=== PATIENT | male | born 1950 | race Caucasian/White ===

== ENCOUNTER → 2024-08-06 06:09 | Outpatient (REF) | payer MEDICARE, OTHER, SELFPAY ==
[2024-08-06 09:02] LABS: Hematocrit 39.9 % (39.0-52.0); Mean Corp Hgb Conc. 35.1 g/dL (33.0-37.0); Mean Corpuscular Hgb 31.3 pg (27.0-31.0); Mean Corpuscular Volume 89.1 fL (80.0-94.0); Mean Platelet Volume 10.4 fL (7.4-10.4); Platelet Count 225 10^3/uL (130-400); Red Blood Cell Count 4.48 10^6/uL (4.70-6.10); Red Cell Dist. Width 13.2 % (11.5-14.5); White Blood Cell Count 7.1 10^3/uL (4.8-10.8)
[2024-08-06 09:38] LABS: Blood Urea Nitrogen 25 mg/dl (9-20); Carbon Dioxide 27 mmol/L (22-30); Chloride 109 mmol/L (98-107); Glucose 94 mg/dl (70-99); Potassium 4.1 mmol/L (3.5-5.1); Sodium 141 mmol/L (135-145); eGFR > 60.00
== END ==
LOC: SDSPAT 06:09
PROVIDERS: ATTENDING PHYSICIAN Surgery; FAMILY PHYSICIAN Family Medicine
DX: Z01.818 Encounter for other preprocedural examination (principal)
CPT/HCPCS: 36415; 80048; 85027

== ENCOUNTER 2024-08-20 06:21 | Day surgery (SDC) | payer MEDICARE, OTHER, SELFPAY ==
[2024-08-06 06:56] VITALS: BMI 28.3
--- NOTE | 2024-08-13 09:48 | PTCARENOTE ---
PER DAUGHTER, LAP SX WAS STOPPED D/T PT HAVING VAGAL RESPONSE TO LAP SX AND TREN[place]LENBUR[place] POSITION, WITH SUBSEQUENT CARDIAC WORKUP, THAT WAS NEGATIVE. PRE-PROCEDURE CARDIAC CLEARANCE OF FILE. ENRIQUE ZENG/ ANESTHESIA COORDINATOR NOTIFIED. NO
FURTHER ORDERS AT THIS TIME.
[2024-08-20] VITALS (7 sets, daily range): BP systolic 118–154; BP diastolic 68–87; BMI 28.3
[2024-08-20] MEDS: NORMOSOL-R/PLASMALYTE-A 1000 IV (08:00)
[2024-08-20] MEDS: TYLENOL 1000 MG PO (08:00)
--- NOTE | 2024-08-20 08:47 | HP.FOC2 ---
Focused History & Physical
Chief Complaint
HPI:
Chief Complaint: Right inguinal hernia
HPI / Indication for Planned Procedure: Patient is a 74-year-old male recently seen in outpatient surgical evaluation secondary to right inguinal swelling and discomfort. Physical examination confirmed the presence of a readily apparent and
reducible right inguinal hernia. I reviewed with the patient and his treatment options. He wished to pursue operative correction and presents today for repair.
Relevant Past Medical History: Other (History of prostate cancer)
Relevant Social History: Negative
Relevant Family History: Negative
Relevant Past Surgical History: Positive for (Robotic prostatectomy, appendectomy)
Review of Systems
Review of Pertinent Systems: All Systems Negative
Medication
See Medication form for detailed medications: Yes
Medication List (including Herbals & OTC):
cholecalciferol (vitamin D3) 25 mcg (1,000 unit) tablet (Vitamin D3) 25 mcg PO DAILY 08/13/24
Medications Reviewed: Yes
Allergies and Reactions
Patient has Allergies: No
Noted Allergies and Reactions:
Allergy/AdvReac Type Severity Reaction Status Date / Time
No Known Allergies Allergy Verified 08/20/24 07:40
Pertinent Physical Exam
All Other Systems: Negative
Head/Neck: Normal
Lungs: Normal
Heart: Normal
Abdomen: Other (Robotic surgical scars, appendectomy surgical scar) and Other (Reducible right inguinal hernia)
Extremities: Normal
Neurological: Normal
Diagnosis / Assessment
74-year-old male presenting for scheduled operative correction symptomatic right inguinal hernia
Plan / Procedure
Robotic assisted laparoscopic repair right inguinal hernia with mesh; possible open
Anesthesia/Sedation to be done by Anesthesia Provider: Yes
--- NOTE | 2024-08-20 08:48 | W.SUR.PREOP ---
Pre-Operative Surgical Note
-
I have examined this patient prior to the performance of the scheduled procedure.
The patient's condition is unchanged from the time of the current History and
Physical and the patient is able to undergo the scheduled procedure.
--- NOTE | 2024-08-20 11:58 | W.IMMPOSTOP ---
Addendum entered and electronically signed by Mani Bauer MD 08/20/24 12:10:
#[id number]
Original Note:
Surgical Immed Post Op Note
-
Primary Surgeon: Mani Bauer MD
Assisting Surgeon: Steffany Penn PA-c
Pre-op Diagnosis: Right inguinal hernia
Post-op Diagnosis: Right inguinal hernia, indirect
Procedure Performed: Robotic assisted laparoscopic LOVE repair right inguinal hernia with mesh; 3D max extra-large mid weight
Anesthesia Type: GETA +0.25% Marcaine
Specimen / Cultures: None
Estimated Blood Loss: 8 mL
Complications: None immediate
Operative Findings: Right indirect inguinal hernia, 3 fingerbreadth defect. Direct space femoral space normal. Typical preperitoneal scarring predominantly over the region of the direct space, Alexsander's ligament and iliac region. 3D max
extra-large mid weight mesh repair, mesh trimmed overlying the iliacs to prevent any shelling or folding.
The assistance of Steffany Walter PA-C was required due to the complexity of the procedure. During the procedure Steffany Walter PA-C assisted with port placement, robotic instrumentation and suture material exchanges, and closure of the surgical incision
sites. I was present for the entirety of the operative procedure.
== END 2024-08-20 14:13 | disposition home or self-care (01) ==
LOC: SDS 06:21
PROVIDERS: ATTENDING PHYSICIAN Surgery; FAMILY PHYSICIAN Family Medicine
DX: K40.90 Unilateral inguinal hernia, without obstruction or gangrene, not specified as recurrent (principal)
CPT/HCPCS: 49650; C1781